=== PATIENT | female | born 1950 | race Caucasian/White ===

== ENCOUNTER 2016-12-11 07:56 | Inpatient (IN) | payer OTHER ==
[2016-12-11] MEDS ORDERED: HYDROmorphONE/DILAUDID 1 MG/ML SYR IVP ONE (08:12)
[2016-12-11] MEDS ORDERED: ONDANSETRON 4 MG/2 ML VIAL IVP ONE (08:12)
[2016-12-11] MEDS ORDERED: NS 1,000 ML IV ONE (08:12)
--- NOTE | 2016-12-11 08:15 | UCPHY ---
H & P Patient Type: Established Time Seen by Provider: 12/11/16 08:07 HPI/ROS: CHIEF COMPLAINT: Left lower quadrant pain HISTORY OF PRESENT ILLNESS: Patient is a 65-year-old female who comes to the Urgent Care complaining of left lower quadrant abdominal pain as well as some CVA pain. Symptoms began yesterday. She has had a fever up to 100.4. Nausea but no vomiting. No diarrhea. She is 4 days status post colonoscopy. She was told that the colonoscopy was unremarkable. She has a history of cholecystectomy and thoracic spine surgery but no other procedures. No other significant past medical history. No urinary symptoms. No vaginal symptoms. REVIEW OF SYSTEMS: Constitutional: See HPI EENTM: denies: blurred vision, double vision, nose congestion Respiratory: denies: cough, shortness of breath Cardiac: denies: chest pain, irregular heart rate, lightheadedness, palpitations Gastrointestinal/Abdominal: See HPI Genitourinary: denies: dysuria, frequency, hematuria, pain Musculoskeletal: denies: joint pain, muscle pain Skin: denies: lesions, rash, jaundice, bruising Neurological: denies: headache, numbness, paresthesia, tingling, dizziness, weakness Hematologic/Lymphatic: denies: blood clots, easy bleeding, easy bruising Immunologic/allergic: denies: HIV/AIDS, transplant EXAM: GENERAL: Well-appearing, well-nourished and in no acute distress. HEAD: Atraumatic, normocephalic. EYES: Pupils equal round and reactive to light, extraocular movements intact, sclera anicteric, conjunctiva are normal. ENT: TMs normal, nares patent, oropharynx clear without exudates. Moist mucous membranes. NECK: Normal range of motion, supple without lymphadenopathy or JVD. LUNGS: Breath sounds clear to auscultation bilaterally and equal. No wheezes rales or rhonchi. HEART: Regular rate and rhythm without murmurs, rubs or gallops. ABDOMEN: Left lower quadrant tenderness BACK: Left CVA pain but no CVA tenderness, no spinal tenderness, step-offs or deformities EXTREMITIES: Normal range of motion, no pitting or edema. No clubbing or cyanosis. NEUROLOGICAL: Cranial nerves II through XII grossly intact. Normal speech, normal gait. 5/5 strength, normal movement in all extremities, normal sensation PSYCH: Normal mood, normal affect. SKIN: Warm, dry, normal turgor, no visible rashes or lesions. Source: Patient Exam Limitations: No limitations - Personal History Tetanus Vaccine Date: WITHIN LAST 10 YRS - Medical/Surgical History Hx Asthma: No Hx Chronic Respiratory Disease: No Hx Diabetes: No Hx Cardiac Disease: No Hx Renal Disease: No Hx Cirrhosis: No Hx Alcoholism: No Hx HIV/AIDS: No Hx Splenectomy or Spleen Trauma: No Other PMH: CHOLECYSTECTOMY, orthoscopic bilat knees, L shoulder rotator cuff repair, r hand surg, r thumb surg - Family History Significant Family History: Hypertension - Social History Smoking Status: Never smoked Alcohol Use: Sober Drug Use: None Constitutional: Initial Vital Signs Temperature (C) 36.5 C 12/11/16 08:12 Heart Rate 95 12/11/16 08:12 Respiratory Rate 16 12/11/16 08:12 Blood Pressure 127/67 H 12/11/16 08:12 O2 Sat (%) 95 12/11/16 08:12 O2 Delivery Mode Room Air Allergies/Adverse Reactions: No Known Allergies Allergy (Verified 12/11/16 08:14) Home Medications: Medication Instructions Recorded NK [No Known Home Meds] 12/11/16 Medical Decision Making - Diagnostics Imaging: Results: CT scan of the abdomen and pelvis was obtained. The results of the study are positive for sigmoid colitis approximately 10 cm. No visible diverticuli, 1 small pocket of air that is may be extraluminal. Possible micro perforation versus ruptured diverticulitis . No free air. The study was read by Dr. Charito Gallegos. I viewed the images myself on the PACS system. ED Course/Re-evaluation: 10:05 a.m. we discussed the patient's CT results. Her lab work is reassuring. Her CT is questionable for ruptured diverticulitis versus sigmoid micro perforation from colonoscopy versus sigmoid colitis from colonoscopy. I have paged Kiran Bedoya who was her deputy building guard for consultation. 10:40 a.m. I discussed the case with Dr. Dony Rob who is on-call for Dr. Bedoya. He recommends NPO and admission to the hospitalist service with consultation by [facility] surgeon and initiation of Invanz. He feels that this is likely secondary to the procedure rather than a perforated diverticulitis. 10:50 a.m. I discussed the results with the patient had been out of her room. She is tearful. She is requesting Dr. Wallis as her surgeon. 11:05 a.m. I discussed the case with Jessica Nassar who will accept for the medical service. She will consult Dr. Gallegos or Dr. Wallis. 11:40 a.m. I had a discussion with the patient because [facility] is very full and has patient's boarding in the emergency department. I offered her transfer to alternative hospital. She declines this and I believe this is reasonable. She may be difficult to transfer elsewhere because this is most likely procedural complication from 1 of our procedures. Also her son-in-law is 1 of our physicians and all of her doctors work at [facility]. She understands that she will likely have to wait for several hours and maybe even days in the emergency department. Differential Diagnosis: Partial list of the Differential diagnosis considered include but were not limited to; diverticulitis, colitis, perforation, and although unlikely based on the history and physical exam, I also considered urinary tract infection, kidney stone, sepsis. I discussed these differential diagnoses and the plan with the patient as well as the usual and expected course. The patient understands that the diagnosis is provisional and that in medicine we are not always correct and that further workup is often warranted. Usual and customary warnings were given. All of the patient's questions were answered. The patient was instructed to return to the emergency department should the symptoms at all worsen or return, otherwise to followup with the physician as we discussed. - Data Points Laboratory Results: Laboratory Results 12/11/16 08:20 12/11/16 08:20 12/11/16 12/11/16 12/11/16 08:40 08:20 08:20 WBC 6.38 10^3/uL 10^3/uL (3.80-9.50) RBC 5.01 10^6/uL 10^6/uL (4.18-5.33) Hgb 14.4 g/dL g/dL (12.6-16.3) Hct 43.0 % % (38.0-47.0) MCV 85.8 fL fL (81.5-99.8) MCH 28.7 pg pg (27.9-34.1) MCHC 33.5 g/dL g/dL (32.4-36.7) RDW 12.5 % % (11.5-15.2) Plt Count 205 10^3/uL 10^3/uL (150-400) MPV 10.6 fL fL (8.7-11.7) Neut % (Auto) 71.2 % % (39.3-74.2) Lymph % (Auto) 19.1 % % (15.0-45.0) [place] % (Auto) 6.7 % % (4.5-13.0) Eos % (Auto) 2.2 % % (0.6-7.6) Baso % (Auto) 0.5 % % (0.3-1.7) Nucleat RBC Rel Count 0.0 % % (0.0-0.2) Absolute Neuts (auto) 4.54 10^3/uL 10^3/uL (1.70-6.50) Absolute Lymphs (auto) 1.22 10^3/uL 10^3/uL (1.00-3.00) Absolute Monos (auto) 0.43 10^3/uL 10^3/uL (0.30-0.80) Absolute Eos (auto) 0.14 10^3/uL 10^3/uL (0.03-0.40) Absolute Basos (auto) 0.03 10^3/uL 10^3/uL (0.02-0.10) Absolute Nucleated RBC 0.00 10^3/uL 10^3/uL (0-0.01) Immature Gran % 0.3 % % (0.0-1.1) Immature Gran # 0.02 10^3/uL 10^3/uL (0.00-0.10) Sodium 145 mEq/L H mEq/L (134-144) Potassium 3.9 mEq/L mEq/L (3.5-5.2) Chloride 102 mEq/L mEq/L (97-110) Carbon Dioxide 26 mEq/l mEq/l (22-31) Anion Gap 17 mEq/L H mEq/L (8-16) BUN 15 mg/dL mg/dL (7-23) Creatinine 0.8 mg/dL mg/dL (0.6-1.0) Estimated GFR > 60 Glucose 94 mg/dL mg/dL (70-100) Calcium 9.6 mg/dL mg/dL (8.5-10.4) Total Bilirubin 1.6 mg/dL H mg/dL (0.1-1.4) Conjugated Bilirubin 0.3 mg/dL mg/dL (0.0-0.5) Unconjugated Bilirubin 1.3 mg/dL H mg/dL (0.0-1.1) AST 43 IU/L IU/L (14-46) ALT 55 IU/L H IU/L (9-52) Alkaline Phosphatase 84 IU/L IU/L (38-126) Total Protein 8.3 g/dL H g/dL (6.3-8.2) Albumin 4.5 g/dL g/dL (3.5-5.0) Lipase 54.0 IU/L IU/L (23-300) Urine Color YELLOW Urine Appearance CLEAR Urine pH 5.5 (5.0-7.5) Ur Specific [place] 1.025 (1.002-1.030) Urine Protein NEGATIVE (NEGATIVE) Urine Ketones NEGATIVE (NEGATIVE) Urine Blood NEGATIVE (NEGATIVE) Urine Nitrate NEGATIVE (NEGATIVE) Urine Bilirubin NEGATIVE (NEGATIVE) Urine Urobilinogen 0.2 EU EU (0.2-1.0) Ur Leukocyte Esterase TRACE H (NEGATIVE) Urine RBC 1-3 /hpf /hpf (0-3) Urine WBC 3-5 /hpf H /hpf (0-3) Ur Epithelial Cells 2+ /lpf H /lpf (NONE-1+) Urine Bacteria 1+ /hpf H /hpf (NONE SEEN) Hyaline Casts 1-3 /lpf H /lpf (0-1) Urine Mucus 3+ /lpf H /lpf (NONE-1+) Ur Culture Indicated? INDICATED H (NI) Urine Glucose NEGATIVE (NEGATIVE) Medications Given: Discontinued Medications Hydromorphone HCl (Dilaudid) 0.5 mg IVP EDNOW ONE Stop: 12/11/16 08:13 Last Admin: 12/11/16 08:35 Dose: Not Given Sodium Chloride (Ns) 1,000 mls @ 0 mls/hr IV ONCE ONE PRN Reason: Wide Open Stop: 12/11/16 08:13 Last Admin: 12/11/16 08:35 Dose: 1,000 mls Ertapenem 1 gm/ Sodium (Chloride) 100 mls @ 200 mls/hr IV EDNOW ONE PRN Reason: Protocol Stop: 12/11/16 11:10 Last Admin: 12/11/16 10:50 Dose: 100 mls Ondansetron HCl (Zofran) 4 mg IVP EDNOW ONE Stop: 12/11/16 08:13 Last Admin: 12/11/16 08:35 Dose: Not Given Departure - Departure Disposition: [facility] Inpatient Acute Clinical Impression: Colon perforation Condition: Fair Referrals: Gabriella Castillo MD [Primary Care Provider] - As per Instructions - PQRS PQRS Measurement: 134: Depression screening and followup, PRIME MD-PHQ2 (12 years and older) Over the last 2 weeks, how often have you been bothered by any of the following problems? 1. Feeling down, depressed, or hopeless? 2. Little interest or pleasure in doing things? Patient answered no to both 1 and 2 130: Documentation of medications. Reviewed all patient medications, doses, route and frequency. 226: Do you smoke? No. 47: 65 and older: Advanced care planning. Patient designates surrogate decision maker as spouse . Patient has advanced directive. 51: 18 years old and older with diagnosis of COPD, spirometry performance. Spirometry not performed; equipment not available. 52: 18 years old and older with COPD and symptoms of COPD or FEV1<60% predicted prescribed a B Agonist. Not applicable
[2016-12-11 08:29] LABS: % IMMATURE GRANULYOCYTES 0.3 % (0.0-1.1); ABSOLUTE IMMATURE GRANULOCYTES 0.02 10^3/uL (0.00-0.10); ADD DIFF? NO; ADD MORPH? NO; ADD SCAN? NO; ATYPICAL LYMPHOCYTE FLAG 0 (0-99); FRAGMENT RBC FLAG 0 (0-99); HEMOGLOBIN 14.4 g/dL (12.6-16.3); LEFT SHIFT FLG 0 (0-99); LIPEMIA HEMOLYSIS FLAG 80 (0-99); MEAN CELL HEMOGLOBIN 28.7 pg (27.9-34.1); MEAN CELL HEMOGLOBIN CONCENTR. 33.5 g/dL (32.4-36.7); MEAN CELL VOLUME 85.8 fL (81.5-99.8); MEAN PLATELET VOLUME 10.6 fL (8.7-11.7); PLATELET CLUMPS FLAG 0 (0-99); PLATELET COUNT 205 10^3/uL (150-400); RED BLOOD CELL COUNT 5.01 10^6/uL (4.18-5.33); RED CELL DISTRIBUTION WIDTH 12.5 % (11.5-15.2)
[2016-12-11 08:44] LABS: ALANINE AMINOTRANSFERASE 55 IU/L (9-52); ALBUMIN 4.5 g/dL (3.5-5.0); ALKALINE PHOSPHATASE 84 IU/L (38-126); ANION GAP 17 mEq/L (8-16); ASPARTATE AMINOTRANSFERASE 43 IU/L (14-46); BILIRUBIN,TOTAL 1.6 mg/dL (0.1-1.4); BILIRUBIN-CONJUGATED 0.3 mg/dL (0.0-0.5); BILIRUBIN-UNCONJUGATED 1.3 mg/dL (0.0-1.1); CALCIUM 9.6 mg/dL (8.5-10.4); CARBON DIOXIDE 26 mEq/l (22-31); CHLORIDE 102 mEq/L (97-110); CREATININE 0.8 mg/dL (0.6-1.0); GLOMERULAR FILTRATION RATE > 60; GLUCOSE 94 mg/dL (70-100); POTASSIUM 3.9 mEq/L (3.5-5.2); SODIUM 145 mEq/L (134-144); TOTAL PROTEIN 8.3 g/dL (6.3-8.2)
[2016-12-11 08:48] LABS: COLOR YELLOW; LEUKOCYTE ESTERASE,URINE TRACE (NEGATIVE); NITRITE,URINE NEGATIVE (NEGATIVE); PH,URINE 5.5 (5.0-7.5)
[2016-12-11 09:00] LABS: BACTERIA 1+ /hpf (NONE SEEN); MUCUS 3+ /lpf (NONE-1+)
[2016-12-11] MEDS ORDERED: IOPAMIDOL (ISOVUE 370) 100 ML BTL IV ONE (09:03)
[2016-12-11] MEDS ORDERED: ERTAPENEM 1 GM in NS 100 ML IV ONE (10:41)
[2016-12-11] MEDS ORDERED: NS 100 ML BAG (MINI-BAG) IV ONE (10:45)
[2016-12-11] MEDS ORDERED: LORazepam 2 MG/ML INJ IVP PRN ×2 (15:38→16:31)
[2016-12-11] MEDS: D5W 1/2 NS W/ 20 KCl/L 1,000 ML IV SCH (16:06)
[2016-12-11] MEDS ORDERED: ONDANSETRON DISINTEGRATING 4 MG TAB PO PRN (16:32)
[2016-12-11] MEDS ORDERED: ACETAMINOPHEN 325 MG TAB PO PRN (16:32)
[2016-12-11] MEDS ORDERED: ONDANSETRON 4 MG/2 ML VIAL IVP PRN (16:32)
--- NOTE | 2016-12-11 16:49 | SOAPPROG ---
SOAP Progress Note Assessment/Plan: Assessment/Plan - 65yo F admitted for poss microperf s/p c-scope - Imaging, labs reviewed - Exam currently reassuring, has some pinpoint tenderness in the LLQ but has no rebound or guarding - Discussed plan with patient; IV abx, pain control, hydrate. Would keep NPO at least overnight and re-examine in AM. If WBC, exam reassuring would start PO intake then - Will likely resolve with conservative management. Will follow closely. Please see full dictated note for remainder. 12/11/16 16:47 Objective: Vital Signs Temp Pulse Resp BP Pulse Ox 36.7 C 86 16 137/62 H 95 12/11/16 15:07 12/11/16 15:07 12/11/16 15:07 12/11/16 15:07 12/11/16 15:07 12/10/16 12/11/16 12/12/16 05:59 05:59 05:59 Intake Total 1100 Balance 1100 ICD10 Worksheet Patient Problems: Problems Problem Status Onset Colon perforation Acute S/P laminectomy Acute Spinal cord compression Acute
--- NOTE | 2016-12-11 16:57 | GCON ---
[f rep st] CONSULTATION GI INPATIENT CONSULTATION DATE OF CONSULTATION: 12/11/2016 I was kindly requested to see the patient by Dr. Carl Malik in consultation for a chief complaint of abdominal pain. HISTORY OF PRESENT ILLNESS: She is a 65-year-old white female who underwent a colonoscopy by Dr. Kiran Bedoya 4 days ago. She was told the colonoscopy was normal. Yesterday, she began to develop left lower quadrant abdominal pain, which radiates to her back. She had a fever yesterday to 100.4. She had some nausea. She presented to the hospital and was admitted. She states she had a good bowel movement last night. No blood in the stool. No fever today. DIAGNOSTIC STUDIES: CT scan of the abdomen pelvis with IV contrast shows a 10 cm long segment of sigmoid colon with circumferential wall thickening and edema. There is a "small speck" of air seen at the edge of this area, which represents either a microperforation or could be air in a "small diverticula." However, again, she was told of a normal colonoscopy. PAST MEDICAL HISTORY: 1. As above. 2. Status post cholecystectomy. 3. Otherwise, noncontributory. ALLERGIES: No known drug allergies. MEDICATIONS: Inpatient medications include 1 dose of Invanz and normal saline. SOCIAL HISTORY: She denies smoking. She is here with Anthony. Of note, her son- in-law is Dr. Levar Sellers. FAMILY HISTORY: Negative for similar abdominal pain. REVIEW OF SYSTEMS: Positive pertinent review of system as per my HPI. Otherwise, a complete review of systems is negative, making a total of 10 systems. PHYSICAL EXAM: CONSTITUTIONAL: Nontoxic-appearing, pleasant woman. SKIN: Warm, dry. HEENT: Eyes: Pupils equal, round, react to light and accommodation. Ears, nose, mouth and throat: Oropharynx without masses, moist mucosa. Cardiovascular: Normal S2, normal PMI. RESPIRATORY: Pulmonary clear to auscultation/percussion. GASTROINTESTINAL: Abdomen with moderate tenderness to light palpation in the suprapubic and left lower quadrant. Other areas of the abdomen soft. NEUROLOGIC: Grossly nonfocal, with cranial nerves grossly intact. PSYCHIATRIC: Orientation, insight appropriate. MUSCULOSKELETAL: Strength grossly normal throughout, normal station. LABORATORY DATA: As above. Normal CBC, including white count. Sodium 145. Total bilirubin 1.6, mostly unconjugated. This most likely represents Gilbert' s syndrome only. ALT 55. Normal lipase. ASSESSMENT: Acute left lower quadrant pain, with fever, sigmoid abnormality on CT scan. With this occurring temporally soon after her colonoscopy with Dr. Bedoya, suspect almost certainly related to the procedure. A contained "microperforation" with some secondary inflammatory reaction is most likely. An atypical ischemic complication, with the 10 cm segment of abnormal sigmoid on CT scan, is also possible, but somewhat less likely, especially with this not being in a "watershed area." Diverticulitis is much less likely, especially with no mention of diverticulosis to the patient after her procedure , and the long segment of inflammation seen on CT scan. Overall, she is moderately tender in her left lower quadrant/suprapubic area. Otherwise, however, normal white count, presently afebrile, relatively nontoxic in appearance. Possibly, the above could resolve with just medical therapy. PLAN: 1. Surgical consultation, for their opinion. 2. N.p.o., except meds, sips of water. 3. Will recheck a white blood cell count in the morning. 4. Invanz 1 g daily. Thank you for allowing me to help in the management of this patient. Copy requested to: Gabriella *PRIMARY CARE CHELA Castillo MD /[id number]/MODL MTDD
--- NOTE | 2016-12-11 17:42 | GHP ---
[f rep st] HISTORY AND PHYSICAL DATE OF ADMISSION: 12/11/2016 CHIEF COMPLAINT: Abdominal pain. HISTORY OF PRESENT ILLNESS: This is a 65-year-old female with no significant past medical history. She had a colonoscopy 4 days ago. She said she did okay the day after, but then starting [address] she started developing left lower quadrant abdominal pain. It was associated with just not feel ing well overall and a low-grade fever as well as chills. She has not had any nausea, vomiting, or diarrhea. She went to urgent care and it looks like there might be a microperforation versus some t ype of colitis. REVIEW OF SYSTEMS: A 10-point review of systems was obtained and other than as stated above was neg ative. PAST MEDICAL HISTORY: Herniated disc status post surgery 2 years ago. MEDICATIONS: Was on Neurontin until few weeks ago and now no medications except vitamins. SOCIAL HISTORY: No smoking or alcohol. FAMILY HISTORY: No family history of colon cancer. PHYSICAL EXAM: VITAL SIGNS: Afebrile. Blood pressure is 136/62, heart rate 86, oxygen saturation 95% on room air. GENERAL: The patient is well developed, no apparent distress. HEENT: Nonicteric sclerae. Extraocular muscles intact. Moist mucous membranes. NECK: Supple. No thyromegaly. CHERELLE NGS Good effort. Clear to auscultation bilaterally. CARDIOVASCULAR: Regular rate and rhythm. No murmurs or gallops. ABDOMEN: Positive bowel sounds. Soft. Some left lower quadrant tenderness. No rebound or guarding. EXTREMITIES: No clubbing, cyanosis, or edema. SKIN: Without rash or inta ct. NEUROLOGIC: Alert and oriented x3. Moving all 4 extremities equally. PSYCH: Normal affect. LABS: CBC is normal. Chemistry shows a sodium is a little bit at elevated 145. Total bilirubin at 1.6, which is mostly unconjugated, 1.3. ALT 55. Otherwise normal. UA had some trace leukocyte es terase. IMAGING: CT scan of the abdomen and pelvis shows a 10 cm segment of edematous and inflamed sigmoid colon with small speck of air at the edge of the sigmoid colon, possibly related to microperforation . ASSESSMENT: This is a 65-year-old female presenting with colitis after colonoscopy, possibly relate d to microperforation. PLAN: 1. Both Surgery and Gastroenterology are involved with the patient. Apparently, they want her n.p. o. We will continue Invanz. Give IV fluids. 2. Admission. Patient will be under full admission status. Case was discussed with the ER yordy nelson. CT scan is personally reviewed and interpreted. /[id number]/MODL
--- NOTE | 2016-12-11 20:02 | GCON ---
[f rep st] CONSULTATION Patient is a 65-year-old female who comes to [facility] from urgent care requesting co nsultation with Dr. Wallis after being diagnosed with free air status post colonoscopy. The patient reports she had a colonoscopy on Wednesday of this week, 5 days ago, and was doing well initially until she had a fever of 100.4 and some left low back and left inguinal, suprapubic pain yesterday. She reports today the pain is still present but much less in intensity. She had an abdominal CT scan wi contrast which demonstrated a 10 cm segment of edematous and inflamed colon. There was a small s dugan of air at the edge of the sigmoid colon loop. The patient reports she has mild pain at this ti me, can move around the room easily, no fever. She is currently n.p.o. Her only abdominal surgery is cholecystectomy. PAST SURGICAL HISTORY: Cholecystectomy, knee arthroscopy, rotator cuff repair, hand surgery. SOCIAL HISTORY: Nonsmoker. No alcohol use. REVIEW OF SYSTEMS: She had a negative 10-point review of systems. ALLERGIES: No known drug allergies. MEDICATIONS: None normally, patient is currently on Invanz. PHYSICAL EXAM: GENERAL: Patient is a very pleasant female who moves around the room easily, accomp anied by family member. HEAD AND NECK: Normocephalic, atraumatic. CHEST: CTA bilaterally. HEART : Regular rhythm and rate. ABDOMEN: Nondistended, very soft to palpation. Negative rebound. Mil d suprapubic and left lower quadrant tenderness to palpation. EXTREMITIES: No lower extremity aroldo a. LABORATORY STUDIES: White blood cell count 6.3, bilirubin 1.6. RADIOLOGY: Abdominal pelvic CT, please see HPI. IMPRESSION: A 65-year-old female with left abdominal pain concerning for perforation after routine colonoscopy earlier this week. RECOMMENDATION: The patient has been seen and examined by Dr. Alvarez. Dr. Wallis will see the p atient shortly as well. Most likely, the plan at this point will be to keep the patient n.p.o., IV antibiotics, and hopefully things will resolve conservatively. /[id number]/MODL
[2016-12-12 05:36] LABS: % IMMATURE GRANULYOCYTES 0.2 % (0.0-1.1); ABSOLUTE IMMATURE GRANULOCYTES 0.01 10^3/uL (0.00-0.10); ADD DIFF? NO; ADD MORPH? NO; ADD SCAN? NO; ATYPICAL LYMPHOCYTE FLAG 10 (0-99); FRAGMENT RBC FLAG 0 (0-99); HEMATOCRIT 33.4 % (38.0-47.0); HEMOGLOBIN 11.4 g/dL (12.6-16.3); LEFT SHIFT FLG 0 (0-99); LIPEMIA HEMOLYSIS FLAG 90 (0-99); MEAN CELL HEMOGLOBIN 29.2 pg (27.9-34.1); MEAN CELL HEMOGLOBIN CONCENTR. 34.1 g/dL (32.4-36.7); MEAN CELL VOLUME 85.4 fL (81.5-99.8); MEAN PLATELET VOLUME 10.8 fL (8.7-11.7); PLATELET CLUMPS FLAG 0 (0-99); PLATELET COUNT 155 10^3/uL (150-400); RED BLOOD CELL COUNT 3.91 10^6/uL (4.18-5.33); RED CELL DISTRIBUTION WIDTH 12.4 % (11.5-15.2)
[2016-12-12 05:55] LABS: ALANINE AMINOTRANSFERASE 43 IU/L (9-52); ALBUMIN 3.7 g/dL (3.5-5.0); ALKALINE PHOSPHATASE 67 IU/L (38-126); ANION GAP 9 mEq/L (8-16); ASPARTATE AMINOTRANSFERASE 24 IU/L (14-46); CALCIUM 8.9 mg/dL (8.5-10.4); CARBON DIOXIDE 21 mEq/l (22-31); CHLORIDE 110 mEq/L (97-110); CREATININE 0.7 mg/dL (0.6-1.0); GLOMERULAR FILTRATION RATE > 60; GLUCOSE 95 mg/dL (70-100); POTASSIUM 4.1 mEq/L (3.5-5.2); SODIUM 140 mEq/L (134-144); TOTAL PROTEIN 6.5 g/dL (6.3-8.2)
--- NOTE | 2016-12-12 07:36 | SOAPPROG ---
SOAP Progress Note Assessment/Plan: Assessment: comfortable/ less tender/ afebrile/ abd soft/ some flatus imp: improving Plan:continue abx and obs 12/12/16 07:34 Objective: Vital Signs Temp Pulse Resp BP Pulse Ox 36.7 C 83 12 103/61 94 12/12/16 07:30 12/12/16 07:30 12/12/16 07:30 12/12/16 07:30 12/12/16 07:30 Laboratory Results 12/12/16 05:12 12/12/16 05:12 12/11/16 12/12/16 12/13/16 05:59 05:59 06:59 Intake Total 1287 Balance 1287 ICD10 Worksheet Patient Problems: Problems Problem Status Onset Colon perforation Acute S/P laminectomy Acute Spinal cord compression Acute
[2016-12-12] MEDS: ENOXAPARIN 40 MG/0.4 ML SYR SC SCH (09:22)
[2016-12-12] MEDS: ERTAPENEM 1 GM in NS 100 ML IV SCH (09:22)
--- NOTE | 2016-12-12 12:41 | HOSPPROG ---
Hospitalist Progress Note Assessment/Plan: 65-year-old female presents emergency room with complaints of acute abdominal pain. This is my 1st encounter with the patient, chart reviewed. Patient discussed with Dr. Gibson Assessment/Plan # poss microperf s/p c-scope Continue supportive management Abdomen soft nontender Advance to clear liquids, reviewed with Dr Wallis Imaging, labs reviewed Cont IV abx, pain control, hydrate. If WBC, exam reassuring would start PO intake then Cont conservative management. #Dispo: unclear, couple days with cont supportive care Subjective: Feeling better today. Less pain. Eager to try liquids. Objective: Vital Signs Temp Pulse Resp BP Pulse Ox 36.7 C 83 12 118/74 94 12/12/16 07:30 12/12/16 07:30 12/12/16 07:30 12/12/16 10:47 12/12/16 07:30 Laboratory Results 12/12/16 05:12 12/12/16 05:12 12/11/16 12/12/16 12/13/16 05:59 05:59 06:59 Intake Total 1287 Balance 1287 - Physical Exam Constitutional: no apparent distress, appears nourished, not in pain Eyes: PERRL, anicteric sclera, EOMI Ears, Nose, Mouth, Throat: moist mucous membranes, hearing normal, ears appear normal Cardiovascular: No JVD, No tachycardia, No edema Respiratory: no respiratory distress, no rales or rhonchi, reduced air movement Gastrointestinal: tenderness, No ascites, No guarding Skin: warm, normal color, No erythema Musculoskeletal: full muscle strength, normal joint ROM, no joint effusions Neurologic: AAOx3 Psychiatric: interacting appropriately, not anxious, not encephalopathic ICD10 Worksheet Patient Problems: Problems Problem Status Onset Spinal cord compression Acute S/P laminectomy Acute Colon perforation Acute
--- NOTE | 2016-12-12 12:49 | SOAPPROG ---
JANNIE Progress Note Assessment/Plan: Assessment:Plan: 1) Abnml Imaging - c/w micro perf, responding to ABX 2) abdo pain - improving with above c/w current therapy If ok with Dr. Wallis advance diet I suspect she will do well and be home in 1-2 days will follow 12/12/16 12:49 Subjective: cc- abdo pain and abnml CT post colon earlier this week I'm feeling better, still with some pain but less, no f/c/s Objective: Vital Signs Temp Pulse Resp BP Pulse Ox 36.7 C 83 12 118/74 94 12/12/16 07:30 12/12/16 07:30 12/12/16 07:30 12/12/16 10:47 12/12/16 07:30 Laboratory Results 12/12/16 05:12 12/12/16 05:12 12/11/16 12/12/16 12/13/16 05:59 05:59 06:59 Intake Total 1287 Balance 1287 A+Ox3 CTA S1S2, +BS,nml pitch and frequency, still a littel tender on LLQ. no r/g ICD10 Worksheet Patient Problems: Problems Problem Status Onset Colon perforation Acute S/P laminectomy Acute Spinal cord compression Acute
[2016-12-12] MEDS: D5W 1/2 NS W/ 20 KCl/L 1,000 ML IV SCH (13:07)
[2016-12-13 07:41] VITALS: RESP 14
--- NOTE | 2016-12-13 09:40 | SOAPPROG ---
SOAP Progress Note Assessment/Plan: Assessment/Plan: 65 Y F possible colon perforation on colonoscopy. Doing well. Less tender. Afebrile. No chills or sweats. Tolerating clears. Continue clears and IV abx today. Could consider d/c to home on PO abx ( augmentin an option) after tomorrow's Invanz dose. May need to continue clears until she is seen in the office next week. 12/13/16 09:38 Objective: Vital Signs Temp Pulse Resp BP Pulse Ox 36.6 C 75 14 118/59 L 92 12/13/16 07:39 12/13/16 07:39 12/13/16 07:39 12/13/16 07:39 12/13/16 07:39 Laboratory Results 12/12/16 05:12 12/12/16 05:12 12/12/16 12/13/16 12/14/16 04:59 05:59 05:59 Intake Total Balance ICD10 Worksheet Patient Problems: Problems Problem Status Onset Colon perforation Acute S/P laminectomy Acute Spinal cord compression Acute
[2016-12-13] MEDS: ENOXAPARIN 40 MG/0.4 ML SYR SC SCH (09:58)
[2016-12-13] MEDS: ERTAPENEM 1 GM in NS 100 ML IV SCH (09:58)
--- NOTE | 2016-12-13 11:45 | HOSPPROG ---
Hospitalist Progress Note Assessment/Plan: 65-year-old female presents emergency room with complaints of acute abdominal pain. Patient discussed with Dr. Gibson and Dr carter. Assessment/Plan # poss microperf s/p colonoscopy Continue supportive management Clear liquids tolerating, do not advance Abdomen soft nontender Cont IV abx, pain control. Cont conservative management loose stools, #Dispo: unclear, couple days with cont supportive care possible in am if doing well, very conservative with diet Subjective: Feeling better today. Less pain. Not hungry. Objective: Vital Signs Temp Pulse Resp BP Pulse Ox 36.6 C 75 14 118/59 L 92 12/13/16 07:39 12/13/16 07:39 12/13/16 07:39 12/13/16 07:39 12/13/16 07:39 Laboratory Results 12/12/16 05:12 12/12/16 05:12 12/12/16 12/13/16 12/14/16 04:59 05:59 05:59 Intake Total Balance - Physical Exam Constitutional: no apparent distress, not in pain Eyes: PERRL, anicteric sclera Ears, Nose, Mouth, Throat: moist mucous membranes, hearing normal Cardiovascular: No JVD, No edema Respiratory: no respiratory distress, clear to auscultation Gastrointestinal: No ascites, No guarding, No distension Skin: warm, normal color Musculoskeletal: full muscle strength, no muscle tenderness Neurologic: AAOx3 Psychiatric: interacting appropriately, not anxious, not encephalopathic ICD10 Worksheet Patient Problems: Problems Problem Status Onset Spinal cord compression Acute S/P laminectomy Acute Colon perforation Acute
--- NOTE | 2016-12-13 11:57 | SOAPPROG ---
JANNIE Progress Note Assessment/Plan: Assessment:Plan: 1) Abnml Imaging - c/w micro perf, responding to ABX 2) abdo pain - improving with above c/w current therapy If ok with Dr. Wallis advance diet I suspect she will do well and be home in 1-2 days will follow 12/12/16 12:49 12/13/16 11:55 as above doing better but with some pain still ijn LLQ liquids today, change to PO abx, prob home tomorrow will sign off thank you Subjective: cc- micro perf s/p colon pain a bit less but still there, she only feels like taking liquids Objective: Vital Signs Temp Pulse Resp BP Pulse Ox 36.6 C 75 14 118/59 L 92 12/13/16 07:39 12/13/16 07:39 12/13/16 07:39 12/13/16 07:39 12/13/16 07:39 Laboratory Results 12/12/16 05:12 12/12/16 05:12 12/12/16 12/13/16 12/14/16 04:59 05:59 05:59 Intake Total Balance A+Ox3 CTA S1S2 +BS, nml pitch and frequency, soft LLQ tender no r/g ICD10 Worksheet Patient Problems: Problems Problem Status Onset Colon perforation Acute S/P laminectomy Acute Spinal cord compression Acute
[2016-12-14 08:03] VITALS: BP 113/57; PULSE 75; TEMP 97.4; O2SAT 95
[2016-12-14] MEDS: ENOXAPARIN 40 MG/0.4 ML SYR SC SCH (08:35)
[2016-12-14] MEDS: ERTAPENEM 1 GM in NS 100 ML IV SCH (08:36)
--- NOTE | 2016-12-14 08:41 | HOSPPROG ---
Hospitalist Progress Note Assessment/Plan: 65-year-old female presents emergency room with complaints of acute abdominal pain. Patient discussed with Evans BRADLEY with surgical team. # poss microperf s/p colonoscopy -Tolerating clear liquids - spoke with surgery who would like to stay on clear liquids until Wednesday - slowly advance her diet - will discharge her on Augmentin - she is to follow up with Dr. Wallis in the next week #Dispo: - DC today with close follow up with Dr. Wallis Subjective: patient says the pain is much less It was located in her left lower quadrant area. Objective: Vital Signs Temp Pulse Resp BP Pulse Ox 36.3 C 75 14 113/57 L 95 12/14/16 08:00 12/14/16 08:00 12/14/16 08:00 12/14/16 08:00 12/14/16 08:00 Laboratory Results 12/12/16 05:12 12/12/16 05:12 12/13/16 12/14/16 12/15/16 05:59 05:59 05:59 Intake Total 725 Balance 725 - Physical Exam Constitutional: no apparent distress, appears nourished Eyes: PERRL Ears, Nose, Mouth, Throat: hearing normal Cardiovascular: regular rate and rhythym Respiratory: no respiratory distress Gastrointestinal: normoactive bowel sounds, tenderness ( slight tenderness with palpation to the left lower quadrant area) Skin: warm, normal color Musculoskeletal: full muscle strength Neurologic: AAOx3 Psychiatric: interacting appropriately, not anxious ICD10 Worksheet Patient Problems: Problems Problem Status Onset Colon perforation Acute S/P laminectomy Acute Spinal cord compression Acute
--- NOTE | 2016-12-14 11:24 | GDS ---
[f rep st] DISCHARGE SUMMARY DISCHARGE DIAGNOSES: Possible micro perforation status post a colonoscopy. CONSULTATIONS DURING HER STAY: 1. Dr. Dony Rob. 2. Dr. Ovidio Alvarez. HISTORY OF PRESENT ILLNESS: Briefly, the patient is a very nice 65-year-old female who underwent a colonoscopy with Dr. Bedoya 4 days prior to admission. She was told her colonoscopy was normal. She developed left lower quadrant abdominal pain with a fever. She was admitted and had a CT scan of the abdomen and pelvis with IV contrast. This showed a 10 cm long segment of sigmoid colon with circumferential wall thickening and edema. There is a small speck of air sitting at the edge of this area, which either represents a micro perforation or could be air in the small diverticula. She was admitted and treated with supportive care with clear liquids and ertapenem. Today, she is feeling markedly better. The pain is almost resolved. She will follow up with Dr. Wallis in the outpatient setting. HOSPITAL COURSE PER PROBLEM: Possible micro perforation. After a colonoscopy, she is tolerating clear liquids. Will discharge her on Augmentin. PLAN: The plan is for her to stay on clear liquids for the next 2 days, and then slowly advance her diet. She will be discharged on oral antibiotics. If her abdominal pain worsens or if she has any fever to return to the emergency room. Greater than 30 minutes discharging and coordinating care. Copy requested to: Dr. Wallis /[id number]/MODL MTDD
== END 2016-12-14 11:17 | disposition home or self-care (01) | DRG 921 ==
LOC: CED 07:56 → F3E 14:52 → OBSVTOIN 16:32
PROVIDERS: ADMIT Internal Medicine; ATTEND Internal Medicine
DX: K91.71 Accidental puncture and laceration of a digestive system organ or structure during a digestive system procedure (principal)
CPT/HCPCS: 74177-PO; 80048-PO; 80076-PO; 81003-PO; 81015-PO; 83690-PO; 85025-PO; 96361-PO; 96365-PO; G0463-PO; J1170; J1335; J1650; J2405; Q9967

== ENCOUNTER → 2017-01-09 | Outpatient (CLI) | payer OTHER | LOC: CIMAGING 11:46 | PROVIDERS: ATTEND Internal Medicine | DX: R06.00 Dyspnea, unspecified (principal); R07.89 Other chest pain; E03.9 Hypothyroidism, unspecified; R07.9 Chest pain, unspecified; R06.02 Shortness of breath; R42 Dizziness and giddiness; Z51.81 Encounter for therapeutic drug level monitoring | CPT/HCPCS: 71020-PO; 80053-PO; 84443-PO; 84484-PO; 85025-PO; 85378-PO ==

== ENCOUNTER → 2017-01-13 | Outpatient (CLI) | payer OTHER | LOC: FIMAGING 13:13 | PROVIDERS: ATTEND Surgery | DX: R10.9 Unspecified abdominal pain (principal); R30.0 Dysuria; K63.1 Perforation of intestine (nontraumatic) ==

== ENCOUNTER 2017-01-31 10:03 | Emergency (ER) | payer OTHER ==
[2017-01-31 10:08] VITALS: TEMP 98.1; O2SAT 96
--- NOTE | 2017-01-31 10:08 | EDPHY ---
H & P Time Seen by Provider: 01/31/17 10:07 HPI/ROS: CHIEF COMPLAINT: [ ] HISTORY OF PRESENT ILLNESS: [Need 4: Location, Duration, Severity, Quality, Context, Timing Modifying Factors, Associated S&S] REVIEW OF SYSTEMS: A comprehensive 10 point review of systems is otherwise negative aside from elements mentioned in the history of present illness. Source: Patient Exam Limitations: No limitations - Personal History Tetanus Vaccine Date: WITHIN LAST 10 YRS - Medical/Surgical History Hx Asthma: No Hx Chronic Respiratory Disease: No Hx Diabetes: No Hx Cardiac Disease: No Hx Renal Disease: No Hx Cirrhosis: No Hx Alcoholism: No Hx HIV/AIDS: No Hx Splenectomy or Spleen Trauma: No Other PMH: CHOLECYSTECTOMY, orthoscopic bilat knees, L shoulder rotator cuff repair, r hand surg, r thumb surg, back surgery - Social History Smoking Status: Never smoked - Physical Exam Exam: General Appearance: [Alert, no distress] Eyes: [Pupils equal and round no pallor or injection] ENT, Mouth: [Mucous membranes moist] Respiratory: [There are no retractions, lungs are clear to auscultation] Cardiovascular: [Regular rate and rhythm] Gastrointestinal: [Abdomen is soft and nontender, no masses, bowel sounds normal] Neurological: [A&O, normal motor function, normal sensory exam, normal cranial nerves] Skin: [Warm and dry, no rashes] Musculoskeletal: [Neck is supple nontender] Extremities: [symmetrical, full range of motion] Psychiatric: [Patient is oriented X 3, there is no agitation] Allergies/Adverse Reactions: No Known Allergies Allergy (Verified 01/31/17 10:05) Home Medications: Medication Instructions Recorded Cholecalciferol Vit D3 [Vitamin D3 4,000 units PO DAILY 12/11/16 2000 units tab (OTC)] Herbals/Supplements -Info Only 1 ea PO DAILY 12/11/16 Vitamin B Complex [B Complex] 1 each PO DAILY 12/11/16 Amoxicillin/Clavulanate Pot 875 mg PO BID #14 tab 12/14/16 [Augmentin 875 MG TAB (*)] Departure - Departure Referrals: Gabriella Castillo MD [Primary Care Provider] - As per Instructions
--- NOTE | 2017-01-31 10:10 | EDPHY ---
H & P Stated Complaint: l side pain x 1 month Time Seen by Provider: 01/31/17 10:07 HPI/ROS: CHIEF COMPLAINT: Worsening chronic abdominal pain HISTORY OF PRESENT ILLNESS: The patient presents to the ED with complaints of worsening chronic abdominal pain. The patient experienced a micro perforation during a colonoscopy in the early part of December. She was hospitalized and was treated nonsurgically with oral antibiotics. The patient was on a course of Augmentin. Since that time she has continued to have pain in the left lower quadrant. The patient did see her primary care provider earlier in the week who did a stool test which was positive for Clostridium difficile although the patient had no complaints of diarrhea. She has been on Flagyl for the past 5 days. The patient reports increasing pain in the left lower quadrant for the past several days. She denies any ongoing fever or diarrhea. REVIEW OF SYSTEMS: A comprehensive 10 point review of systems is otherwise negative aside from elements mentioned in the history of present illness. Source: Patient Exam Limitations: No limitations - Personal History Tetanus Vaccine Date: WITHIN LAST 10 YRS - Medical/Surgical History Hx Asthma: No Hx Chronic Respiratory Disease: No Hx Diabetes: No Hx Cardiac Disease: No Hx Renal Disease: No Hx Cirrhosis: No Hx Alcoholism: No Hx HIV/AIDS: No Hx Splenectomy or Spleen Trauma: No Other PMH: CHOLECYSTECTOMY, orthoscopic bilat knees, L shoulder rotator cuff repair, r hand surg, r thumb surg, back surgery - Social History Smoking Status: Never smoked - Physical Exam Exam: General Appearance: Alert, no distress Eyes: Pupils equal and round no pallor or injection ENT, Mouth: Mucous membranes moist Respiratory: There are no retractions, lungs are clear to auscultation Cardiovascular: Regular rate and rhythm Gastrointestinal: Tenderness to deep palpation noted in the left lower quadrant , normal bowel sounds, no peritoneal signs Neurological: 5/5 strength all 4 extremities Skin: Warm and dry, no rashes Musculoskeletal: Neck is supple nontender Extremities: symmetrical, full range of motion Constitutional: Initial Vital Signs Temperature (C) 36.7 C 01/31/17 10:06 Heart Rate 92 01/31/17 10:06 Respiratory Rate 18 01/31/17 10:06 Blood Pressure 147/67 H 01/31/17 10:06 O2 Sat (%) 96 01/31/17 10:06 O2 Delivery Mode Room Air Allergies/Adverse Reactions: No Known Allergies Allergy (Verified 01/31/17 10:05) Home Medications: Medication Instructions Recorded NK [No Known Home Meds] 01/31/17 Medical Decision Making - Diagnostics Imaging Results: CT abdomen pelvis: No evidence of an obvious progressive abscess, perforation or obstruction. Area of focal thickening noted in sigmoid colon improved from prior study Imaging: Discussed imaging studies w/ call center dispatcher Radiologist ED Course/Re-evaluation: I reviewed the patient's past medical records including her hospitalization, surgical consultation and discharge summary from December. The patient presents to the ED with chronic left lower quadrant pain since a history of a micro perforation from a colonoscopy approximately 5 weeks ago. Given the patient's left lower quadrant tenderness, a CT scan of the abdomen pelvis with IV contrast has been ordered to exclude the development of an interval intra-abdominal abscess. CT scan of the abdomen pelvis demonstrates no evidence of a regina intra- abdominal abscess. The patient has no fever, no leukocytosis or additional findings on CT scan. The patient will be discharged home with plans to follow up with her primary care provider as needed. She is discharged home with customary aftercare instructions. Differential Diagnosis: Differential diagnosis considered includes intra-abdominal abscess, diverticulitis, colitis, intestinal adhesion - Data Points Laboratory Results: Laboratory Results 01/31/17 10:20 01/31/17 10:20 01/31/17 01/31/17 01/31/17 10:20 10:20 10:20 WBC 4.31 10^3/uL 10^3/uL (3.80-9.50) RBC 4.87 10^6/uL 10^6/uL (4.18-5.33) Hgb 14.0 g/dL g/dL (12.6-16.3) POC Hgb 15.0 gm/dL gm/dL (12.3-15.9) Hct 42.1 % % (38.0-47.0) POC Hct 44 % % (35.5-47.5) MCV 86.4 fL fL (81.5-99.8) MCH 28.7 pg pg (27.9-34.1) MCHC 33.3 g/dL g/dL (32.4-36.7) RDW 13.0 % % (11.5-15.2) Plt Count 192 10^3/uL 10^3/uL (150-400) MPV 10.6 fL fL (8.7-11.7) Neut % (Auto) 65.6 % % (39.3-74.2) Lymph % (Auto) 23.7 % % (15.0-45.0) Ashley % (Auto) 7.2 % % (4.5-13.0) Eos % (Auto) 2.6 % % (0.6-7.6) Baso % (Auto) 0.7 % % (0.3-1.7) Nucleat RBC Rel Count 0.0 % % (0.0-0.2) Absolute Neuts (auto) 2.83 10^3/uL 10^3/uL (1.70-6.50) Absolute Lymphs (auto) 1.02 10^3/uL 10^3/uL (1.00-3.00) Absolute Monos (auto) 0.31 10^3/uL 10^3/uL (0.30-0.80) Absolute Eos (auto) 0.11 10^3/uL 10^3/uL (0.03-0.40) Absolute Basos (auto) 0.03 10^3/uL 10^3/uL (0.02-0.10) Absolute Nucleated RBC 0.00 10^3/uL 10^3/uL (0-0.01) Immature Gran % 0.2 % % (0.0-1.1) Immature Gran # 0.01 10^3/uL 10^3/uL (0.00-0.10) POC Sodium 143 mEq/L mEq/L (134-144) Sodium 143 mEq/L mEq/L (134-144) POC Potassium 3.8 mEq/L mEq/L (3.3-5.0) Potassium 4.2 mEq/L mEq/L (3.5-5.2) POC Chloride 104 mEq/L mEq/L (96-108) Chloride 106 mEq/L mEq/L (97-110) Carbon Dioxide 25 mEq/l mEq/l (22-31) Anion Gap 12 mEq/L mEq/L (8-16) POC BUN 14 mg/dL mg/dL (7-23) BUN 14 mg/dL mg/dL (7-23) Creatinine 0.8 mg/dL mg/dL (0.6-1.0) POC Creatinine 0.8 mg/dL mg/dL (0.6-1.2) Estimated GFR > 60 Glucose 87 mg/dL mg/dL (70-100) POC Glucose 89 mg/dL mg/dL (70-100) Calcium 9.7 mg/dL mg/dL (8.5-10.4) Point of Care Test Results: 01/31/17 10:20 POC Sodium 143 POC Potassium 3.8 POC Chloride 104 POC BUN 14 POC Creatinine 0.8 POC Glucose 89 Departure - Departure Disposition: Home, Routine, Self-Care Clinical Impression: Abdominal pain Condition: Good Instructions: Abdominal Pain (ED) Additional Instructions: 1. Your CT scan demonstrates no evidence of a perforation or abscess. 2. Your pain may be secondary to adhesions from your prior perforation. 3. Please follow up as scheduled with your regular physician. Return to the ED immediately for fever, worsening pain, vomiting or other concerns. Referrals: Gabriella Castillo MD [Primary Care Provider] - As per Instructions
[2017-01-31] MEDS ORDERED: IOPAMIDOL (ISOVUE-300) 100 ML BTL IV ONE (10:33)
[2017-01-31 10:39] LABS: % IMMATURE GRANULYOCYTES 0.2 % (0.0-1.1); ABSOLUTE IMMATURE GRANULOCYTES 0.01 10^3/uL (0.00-0.10); ADD DIFF? NO; ADD MORPH? NO; ADD SCAN? NO; ATYPICAL LYMPHOCYTE FLAG 30 (0-99); FRAGMENT RBC FLAG 0 (0-99); HEMATOCRIT 42.1 % (38.0-47.0); LEFT SHIFT FLG 0 (0-99); LIPEMIA HEMOLYSIS FLAG 80 (0-99); MEAN CELL HEMOGLOBIN 28.7 pg (27.9-34.1); MEAN CELL HEMOGLOBIN CONCENTR. 33.3 g/dL (32.4-36.7); MEAN CELL VOLUME 86.4 fL (81.5-99.8); MEAN PLATELET VOLUME 10.6 fL (8.7-11.7); PLATELET CLUMPS FLAG 10 (0-99); PLATELET COUNT 192 10^3/uL (150-400); RED BLOOD CELL COUNT 4.87 10^6/uL (4.18-5.33)
[2017-01-31 10:54] LABS: ANION GAP 12 mEq/L (8-16); CALCIUM 9.7 mg/dL (8.5-10.4); CARBON DIOXIDE 25 mEq/l (22-31); CHLORIDE 106 mEq/L (97-110); CREATININE 0.8 mg/dL (0.6-1.0); GLOMERULAR FILTRATION RATE > 60; GLUCOSE 87 mg/dL (70-100); POTASSIUM 4.2 mEq/L (3.5-5.2); SODIUM 143 mEq/L (134-144)
[2017-01-31 12:00] VITALS: BP 116/78; PULSE 84; RESP 16
== END 2017-01-31 12:01 | disposition home or self-care (01) ==
DX: R10.32 Left lower quadrant pain (principal); Z90.49 Acquired absence of other specified parts of digestive tract
CPT/HCPCS: 74177; 99285; Q9967; 82947-QW

== ENCOUNTER → 2017-06-11 | Outpatient (CLI) | payer OTHER ==
[~2017-06-11] MED LIST: DEPO METHYLPREDNISOLONE 40 MG/ML SDV ONE; LIDOCAINE 1% 300 MG/30 ML SDV ONE
== END ==
LOC: FIMAGING 09:49
PROVIDERS: ATTEND Orthopaedic Surgery
PROC: 0M9N3ZZ Drainage of Right Knee Bursa and Ligament, Percutaneous Approach (ICD-10-PCS; principal; 2017-06-11)
PROC: 3E013BZ Introduction of Anesthetic Agent into Subcutaneous Tissue, Percutaneous Approach (ICD-10-PCS; principal; 2017-06-11)
PROC: 3E0133Z Introduction of Anti-inflammatory into Subcutaneous Tissue, Percutaneous Approach (ICD-10-PCS; principal; 2017-06-11)
DX: M71.21 Synovial cyst of popliteal space [Baker], right knee (principal); M25.561 Pain in right knee
CPT/HCPCS: 20611; 76942; J1030

== ENCOUNTER → 2017-07-26 | Outpatient (CLI) | payer OTHER | LOC: CIMAGING 07:33 | DX: Z12.31 Encounter for screening mammogram for malignant neoplasm of breast (principal) | CPT/HCPCS: G0202 ==

== ENCOUNTER → 2019-02-13 | Outpatient (CLI) | payer OTHER | LOC: CIMAGING 13:27 | PROVIDERS: ATTEND Family Medicine | DX: Z12.31 Encounter for screening mammogram for malignant neoplasm of breast (principal) ==